=== PATIENT | female | born 1990 | race Caucasian/White ===

== ENCOUNTER 2022-12-24 07:17 | Emergency (ER) | payer OTHER ==
[~2022-12-24] VITALS: Ht 139.7 cm; Wt 45.0 kg
[2022-12-24 09:39] LABS: BASOPHILS % 0.6 % (0.0-2.0); EOSINOPHILS % 1.2 % (0.0-5.0); HEMATOCRIT. 40.5 % (36.0-48.0); HEMOGLOBIN. 13.7 g/dL (12.0-16.0); LYMPHOCYTES % 19.6 % (20.0-50.0); MEAN CORPUSCULAR HEMOGLOBIN 30.1 pg (28.0-32.0); MEAN CORPUSCULAR VOLUME 88.6 fL (81.0-99.0); MEAN PLATELET VOLUME 8.5 fl (7.4-10.4); MONOCYTES % 10.9 % (2.0-8.0); NEUTROPHILS % 67.7 % (40.0-76.0); PLATELET 309 x1000/uL (130-400); RED BLOOD CELL COUNT 4.57 mill/uL (4.2-5.4)
[2022-12-24 09:47] LABS: INR 0.9; PROTHROMBIN TIME 10.2 sec (9.6-11.0)
[2022-12-24 09:53] LABS: CHLORIDE 106 mEq/L (98-107); HCG SCREEN NEGATIVE
[2022-12-24 10:05] LABS: ETHANOL BLOOD < 10 mg/dL
[2022-12-24] MEDS ORDERED: IBUPROFEN 600MG TABLET PO NR (11:00)
[2022-12-24] MEDS ORDERED: ONDANSETRON 4MG ODT PO NR (11:00)
[2022-12-24] MEDS ORDERED: IBUP-2029 MT (11:18)
[2022-12-24] MEDS ORDERED: ONDA4TAB50 MT (11:18)
[2022-12-24 11:21] VITALS: BP 127/43
== END 2022-12-24 11:35 | disposition home or self-care (01) ==
LOC: ER 07:17
DX: K80.20 Calculus of gallbladder without cholecystitis without obstruction (principal)
CPT/HCPCS: 36415; 76705; 80053; 80320; 82248; 83690; 84703; 85025; 85610; 99284; Q0162; G0480